=== PATIENT | male | born 1970 | race Caucasian/White ===

== ENCOUNTER → 2016-08-25 | Outpatient (CLI) | payer BC ==
[2016-08-25 08:46] LABS: ALANINE AMINOTRANSFERASE 53 U/L (21-72); ALBUMIN 4.1 g/dL (3.5-5.0); ALKALINE PHOSPHATASE 81 U/L (38-126); ASPARTATE AMINO TRANSFERASE 27 U/L (17-59); BILIRUBIN,DIRECT 0.3 mg/dL (0.0-0.4); CHOLESTEROL 183.59 mg/dL (0-200); Direct HDL 30 mg/dL (>40); TOTAL PROTEIN 6.3 g/dL (6.3-8.2); TRIGLYCERIDES 308 mg/dL (<150)
[2016-08-25 08:57] LABS: DIRECT LDL 99 mg/dL (<100)
[2016-08-25 08:59] LABS: VLDL CHOLESTEROL 61.6 mg/dL (10-31)
== END ==
LOC: OD 07:16
PROVIDERS: ATTEND Specialist
DX: I25.10 Atherosclerotic heart disease of native coronary artery without angina pectoris (principal); I48.0 Paroxysmal atrial fibrillation; R01.1 Cardiac murmur, unspecified; I25.2 Old myocardial infarction; Z79.899 Other long term (current) drug therapy; Z98.61 Coronary angioplasty status
CPT/HCPCS: 36415; 80061; 80076